=== PATIENT | female | born 1935 | race Caucasian/White ===

== ENCOUNTER 2018-02-03 13:44 | Emergency (ER) | payer MEDICARE, MEDICAID ==
--- NOTE | 2018-02-03 14:17 | EDM.PDOC ---
ED HPI GENERAL MEDICAL PROBLEM - General Chief Complaint: Skin Complaint Stated Complaint: RT ARM CUT Time Seen by Provider: 02/03/18 14:18 Source of Information: Reports: Patient History Limitations: Reports: No Limitations - History of Present Illness INITIAL COMMENTS - FREE TEXT/NARRATIVE: pt hit her rt elebow on the closet door. This happend Sunday and since that time it has looked red . It is more tender today. Onset: Gradual Duration: Day(s): Location: Reports: Upper Extremity, Right Associated Symptoms: Reports: No Other Symptoms Past Medical History HEENT History: Reports: Impaired Vision [employer] History: Reports: Neurological History: Reports: Neuropathy, Diabetic Endocrine/Metabolic History: Reports: Diabetes, Type II, Obesity/BMI 30+ Social & Family History - Tobacco Use Smoking Status *Q: Never Smoker - Caffeine Use Caffeine Use: Reports: Coffee, Soda - Recreational Drug Use Recreational Drug Use: No ED ROS GENERAL - Review of Systems Review Of Systems: See Below Constitutional: Reports: No Symptoms HEENT: Reports: No Symptoms Respiratory: Reports: No Symptoms Cardiovascular: Reports: No Symptoms Endocrine: Reports: No Symptoms GI/Abdominal: Reports: No Symptoms : Reports: No Symptoms Musculoskeletal: Reports: Other ( skin tear with a red area round it. ) ED EXAM, SKIN/RASH Exam: See Below Text/Narrative:: pt arrived with a skin tear on her rt elebow. Exam Limited By: No Limitations General Appearance: Alert Extremities: Other ( rt elebow has a skin tear. There is an area of redness around the site. This is more tender. ) Course - Vital Signs Last Recorded V/S: Last Vital Signs Temp 36.0 C 02/03/18 13:59 Pulse 99 02/03/18 13:59 Resp 18 02/03/18 13:59 BP 148/70 H 02/03/18 13:59 Pulse Ox 99 02/03/18 13:59 Departure - Departure Time of Disposition: 14:16 Disposition: Home, Self-Care 01 Condition: Fair Clinical Impression: Infected skin tear - Discharge Information Instructions: Skin Tear Care, [id number] Referrals: Karthik Cosby MD [Primary Care Provider] - Forms: ED Department Discharge Care Plan Goals: moist warm packs bid, keflex 500mg tid for 7 days.
== END 2018-02-03 14:37 | disposition home or self-care (01) ==
LOC: JP.ED 13:44
DX: L08.9 Local infection of the skin and subcutaneous tissue, unspecified (principal); E11.40 Type 2 diabetes mellitus with diabetic neuropathy, unspecified
CPT/HCPCS: 99283

== ENCOUNTER 2020-07-16 13:19 | Emergency (ER) | payer MEDICARE, MEDICAID ==
--- NOTE | 2020-07-16 13:51 | EDM.PDOC ---
<Keely Medellin M - Last Filed: 07/16/20 14:30> ED HPI GENERAL MEDICAL PROBLEM - General Chief Complaint: General Stated Complaint: VIA NORTH Time Seen by Provider: 07/16/20 13:46 Source of Information: Reports: Patient, Family, RN, RN Notes Reviewed History Limitations: Reports: No Limitations - History of Present Illness INITIAL COMMENTS - FREE TEXT/NARRATIVE: Pt fell from standing position to floor and landed on BL knees and bumped R thumb and BL elbows. Pt denies pain in any extremity. r thumb is painful to Flexion and extension. Edema to R thumb. Skin tear present on R elbow/fa. Denies LOC or syncopal episode. Son bedside. Onset: Today - Related Data Allergies Allergy/AdvReac Type Severity Reaction Status Date / Time No Known Allergies Allergy Verified 07/16/20 13:35 Home Meds: Home Meds Insulin Aspart [NovoLOG] 1 injection SQ BEDTIME 07/16/20 [History] Insulin Glarg,Human.Rec.Analog [Lantus Solostar] 1 injection SQ DAILY 07/16/20 [History] Nystatin [Nystatin Crm] 1 applic TOP DAILY 07/16/20 [History] Simvastatin 1 tab PO BEDTIME 07/16/20 [History] Spironolactone [Aldactone] 1 tab PO TID 07/16/20 [History] cycloSPORINE [Restasis] 1 drop TOP DAILY 07/16/20 [History] Past Medical History HEENT History: Reports: Impaired Vision [employer]ER History: Reports: Neurological History: Reports: Neuropathy, Diabetic Endocrine/Metabolic History: Reports: Diabetes, Type II, Obesity/BMI 30+ Social & Family History - Tobacco Use Tobacco Use Status *Q: Never Tobacco User - Caffeine Use Caffeine Use: Reports: Coffee, Soda ED ROS GENERAL - Review of Systems Review Of Systems: See Below Constitutional: Reports: No Symptoms HEENT: Reports: No Symptoms Respiratory: Reports: No Symptoms Cardiovascular: Reports: No Symptoms Endocrine: Reports: No Symptoms GI/Abdominal: Reports: No Symptoms : Reports: No Symptoms Musculoskeletal: Reports: Hand Pain (r thumb) Skin: Reports: Erythema, Other (Eccymotic, thin fragile skin to BLUE scattered. ) Neurological: Reports: No Symptoms Psychiatric: Reports: No Symptoms Hematologic/Lymphatic: Reports: No Symptoms Immunologic: Reports: No Symptoms ED EXAM, GENERAL - Physical Exam Exam: See Below Exam Limited By: No Limitations General Appearance: Alert, WD/WN Head: Normocephalic Neck: Normal Inspection, Supple, Non-Tender, Full Range of Motion Respiratory/Chest: No Respiratory Distress, Lungs Clear Cardiovascular: Normal Peripheral Pulses, Regular Rate, Rhythm (Female) Exam: Deferred Rectal (Female) Exam: Deferred Extremities: Redness (BL knees redened frm fall and BLUE eccymotic) Neurological: Alert, Oriented, CN II-XII Intact Psychiatric: Normal Affect, Normal Mood Skin Exam: Warm, Dry, Ecchymosis Departure - Departure Time of Disposition: 14:30 Disposition: Home, Self-Care 01 Condition: Good Clinical Impression: Fracture of thumb Qualifiers: Encounter type: initial encounter Fracture type: closed Phalanx: proximal Fracture alignment: nondisplaced Laterality: right Qualified Code(s): S62.514A - Nondisplaced fracture of proximal phalanx of right thumb, initial encounter for closed fracture - Discharge Information *PRESCRIPTION DRUG MONITORING PROGRAM REVIEWED*: Not Applicable *COPY OF PRESCRIPTION DRUG MONITORING REPORT IN PATIENT JD: Not Applicable Instructions: Finger Fracture, Adult, [id number] Referrals: PCP,None [Primary Care Provider] - Forms: ED Department Discharge Care Plan Goals: Please keep splint on right hand/thumb until you see Dr Jennings on . You may apply ice to thumb for pain relief or take Ibuprofen or Tylenol. If the hand swells and the splint becomes too tight, you may loosen the velcro strap but DO NOT TAKE OFF SPLINT If any acute changes, please see your primary provider or return to the ER - Assessment/Plan Plan: Please keep splint on right hand/thumb until you see Dr Jennings on . You may apply ice to thumb for pain relief or take Ibuprofen or Tylenol. If the hand swells and the splint becomes too tight, you may loosen the velcro strap but DO NOT TAKE OFF SPLINT If any acute changes, please see your primary provider or return to the ER <Karthik Haley - Last Filed: 07/16/20 17:23> Course - Vital Signs Last Recorded V/S: Last Vital Signs Temp 96.7 F L 07/16/20 13:46 Pulse 115 H 07/16/20 13:46 Resp 16 07/16/20 13:46 BP 117/58 L 07/16/20 13:46 Pulse Ox 98 07/16/20 13:46 - Re-Assessments/Exams Free Text/Narrative Re-Assessment/Exam: 07/16/20 17:21 X-ray of the right thumb showed a nondisplaced fracture of the proximal phalanx. She was placed in a thumb spica splint, was able to ambulate with a walker and will recheck with Dr. Jennings next week . If she has increasing difficulty with ambulation, giving herself her medications or other normal daily activities she will return or call. Sepsis Event Note (ED) - Focused Exam Vital Signs: Vital Signs Temp Pulse Resp BP Pulse Ox 07/16/20 13:46 96.7 F L 115 H 16 117/58 L 98 07/16/20 13:37 96.7 F L 115 H 16 117/58 L 98 Attestation - Student - Attestation Statement Attestation Statement: I personally performed or re-performed the physical examination and medical decision making. I have verified all student documentation or findings, including history, physical exam and/or medical decision making.
--- NOTE | 2020-07-16 14:32 | CR ---
Fingers Thumb Rt F5 CLINICAL HISTORY: Fall FINDINGS: There is a slightly dilated fracture of the proximal aspect of the first proximal phalanx. There is no articular surface involvement. There is moderate to severe osteoarthritic change. Bones are osteoporotic IMPRESSION: Fracture through base of first proximal phalanx Severe osteoarthritic changes
== END 2020-07-16 15:43 | disposition home or self-care (01) ==
LOC: JP.ED 13:19
DX: S62.514A Nondisplaced fracture of proximal phalanx of right thumb, initial encounter for closed fracture (principal); E11.40 Type 2 diabetes mellitus with diabetic neuropathy, unspecified; E66.9 Obesity, unspecified; Z68.35 Body mass index [BMI] 35.0-35.9, adult
CPT/HCPCS: 29125; 73140-26-F5; 73140-F5; 99283-25

== ENCOUNTER 2023-03-11 09:47 | Emergency (ER) | payer MEDICARE, MEDICAID | END 2023-03-11 11:14 | disposition home or self-care (01) | LOC: JP.ED 09:47 | DX: H11.32 Conjunctival hemorrhage, left eye (principal); E11.40 Type 2 diabetes mellitus with diabetic neuropathy, unspecified; E66.9 Obesity, unspecified; Z79.4 Long term (current) use of insulin; Z68.34 Body mass index [BMI] 34.0-34.9, adult | CPT/HCPCS: 99283 ==

== ENCOUNTER 2025-03-29 17:34 | Emergency (ER) | payer MEDICARE, MEDICAID ==
[2025-03-29 17:49] LABS: BASOPHILS ABSOLUTE AUTO 0.06 K/uL (0.00-0.10); BASOPHILS PERCENT AUTO 0.6 % (0.1-1.3); EOSINOPHILS ABSOLUTE AUTO 0.05 K/uL (0.00-0.40); EOSINOPHILS PERCENT AUTO 0.5 % (0.0-5.4); HEMATOCRIT 35.7 % (34.3-46.0); HEMOGLOBIN 11.9 g/dL (11.2-15.5); IMMATURE GRAN PERCENT AUTO 0.9 % (0.0-0.7); LYMPHOCYTES ABSOLUTE AUTO 0.34 K/uL (0.8-3.3); LYMPHOCYTES PERCENT AUTO 3.1 % (11.4-47.7); MEAN CORPUSCULAR HEMOGLOBIN 32.1 pg (31.6-35.5); MEAN CORPUSCULAR HGB CONC 33.3 g/dL (31.6-35.5); MEAN CORPUSCULAR VOLUME 96.2 fL (81.4-99.0); MONOCYTES ABSOLUTE AUTO 0.17 K/uL (0.20-0.90); MONOCYTES PERCENT AUTO 1.6 % (3.3-12.6); NEUTROPHILS PERCENT AUTO 93.3 % (40.0-78.1); PLATELET COUNT,PLT 244 K/uL (130-375); RED BLOOD CELL COUNT 3.71 M/uL (3.77-5.24); WHITE BLOOD CELL COUNT,WBC 10.8 K/uL (3.2-11.0)
[2025-03-29] MEDS: Sodium Chloride 0.9% 1,000 ML IV SCH ×2 (17:55→20:30)
[2025-03-29 18:16] LABS: ANION GAP 25.7 mmol/L (5.0-14.0); CREATININE 1.7 mg/dL (0.6-1.0); EST CRCL DRUG DOSING (CG) 16.11 mL/min; POTASSIUM,K 4.7 mmol/L (3.6-5.2); TROPONIN I HIGH SENSITIVITY 37.7 pg/mL (<=60.3)
[2025-03-29 18:21] LABS: CALCIUM 9.6 mg/dL (8.5-10.1)
[2025-03-29] MEDS ORDERED: Glucagon,Human Recombinant 1 MG Vial IM PRN (18:26)
[2025-03-29] MEDS ORDERED: 50% Dextrose in Water 50 ML Syringe IVPUSH PRN (18:26)
[2025-03-29] MEDS ORDERED: Insulin Regular in 0.9 % NACL 100 ML IV SCH (18:30)
[2025-03-29] MEDS: Insulin Regular in 0.9 % NACL 100 ML IV SCH (18:57)
[2025-03-29 20:08] LABS: APPEARANCE,URINE CLEAR (CLEAR); BILIRUBIN,URINE SMALL (NEGATIVE); COLOR,URINE YELLOW (YELLOW); GLUCOSE,URINE 500 mg/dL (NEGATIVE); KETONES,URINE 15 mg/dL (NEGATIVE); LEUKOCYTE ESTERASE,URINE NEGATIVE (NEGATIVE); NITRITE,URINE NEGATIVE (NEGATIVE); OCCULT BLOOD,URINE NEGATIVE (NEGATIVE); PROTEIN,URINE 100 mg/dL (NEGATIVE)
[2025-03-29 20:27] LABS: AMORPHOUS SEDIMENT,URINE NOT SEEN; BACTERIA,URINE FEW; EPITHELIAL CELLS,URINE FEW; MUCUS,URINE FEW; RBC,URINE 0-5 (0-5); WBC,URINE 0-5 (0-5)
[2025-03-29 20:27] LABS: BASE EXCESS VENOUS -4.6 mm/L; BICARBONATE,VENOUS 19.5 mmol/L; CARBOXYHEMOGLOBIN 1.6 % (0.0-1.6); METHEMOGLOBIN 0.9 %; O2 SATURATION VENOUS 58.8; OXYHEMOGLOBIN 57.3 %; PCO2 VENOUS 34.6 mm/Hg; PH,VENOUS 7.369 (7.350-7.450); PO2 VENOUS 32.5 mm/Hg; TOTAL HEMOGLOBIN 12.1 g/dL (12.0-16.0)
[2025-03-29] MEDS: Lactated Ringers 1,000 ML IV SCH (20:38)
== END 2025-03-29 21:40 ==
LOC: JP.ED 17:34
DX: E11.10 Type 2 diabetes mellitus with ketoacidosis without coma (principal); E87.1 Hypo-osmolality and hyponatremia; E86.0 Dehydration; Z90.49 Acquired absence of other specified parts of digestive tract; Z79.4 Long term (current) use of insulin; Z79.899 Other long term (current) drug therapy
CPT/HCPCS: 36415; 70450; 71045; 80048; 81001; 82009; 82803; 82947; 83605; 84484; 85025; 87040; 93005; 96360; 99285; A9270; J7030; J7120; 93010